=== PATIENT | female | born 1955 | race Caucasian/White ===

== ENCOUNTER 2023-11-08 13:14 | Day surgery (SDC) | payer MEDICARE, BC ==
[~2023-11-08] VITALS: Ht 172.7 cm; Wt 91.3 kg
[~2023-11-08 13:14] MED LIST: ACET500 PO; AMLO5 PO; ASPI81CH PO; CALCIUM-MAGNES1 EAC9 PO; CLIMARA1 EACH TD; ENJUVIA; ESTRADIOL0.5 MG PO; HYDACE5 PO; LEVSOD100 PO; LORA.5 PO; MELO7.5 PO; METO25 PO; NAPR500 PO; ONDA4ODT MM; OXYACE5T PO; Procto-Kit28.35 G1
[2023-11-08] MEDS ORDERED: MELA3 PO (13:37)
--- NOTE | 2023-11-08 13:55 | NUR ---
11/08/23 1355 Diana Smith CALL LIGHT WITHIN REACH. SUSANA IN AT [id number]
[2023-11-08 14:53] VITALS: BP 127/67
[2023-11-09] MEDS ORDERED: ATOR20 PO (16:12)
[2023-11-09] MEDS ORDERED: HYDCHL25 PO (16:13)
[2023-11-09] MEDS ORDERED: HYDCOR2.5C (16:15)
== END 2023-11-08 15:14 | disposition home or self-care (01) ==
LOC: ORSCSDS 13:14
PROVIDERS: Student in an Organized Health Care Education/Training Program
PROC: 08RK3JZ Replacement of Left Lens with Synthetic Substitute, Percutaneous Approach (ICD-10-PCS; principal; 2023-11-08 14:30)
DX: H25.13 Age-related nuclear cataract, bilateral (principal); I10 Essential (primary) hypertension; I48.91 Unspecified atrial fibrillation; I25.10 Atherosclerotic heart disease of native coronary artery without angina pectoris; E78.5 Hyperlipidemia, unspecified; E03.9 Hypothyroidism, unspecified; Z79.899 Other long term (current) drug therapy; Z79.82 Long term (current) use of aspirin
CPT/HCPCS: J2250; J3010; J7040; V2632

== ENCOUNTER 2023-11-15 13:16 | Day surgery (SDC) | payer MEDICARE, BC ==
[~2023-11-15] VITALS: Ht 172.7 cm; Wt 90.1 kg
[~2023-11-15 13:16] MED LIST changes: +ATOR20 PO; +HYDCHL25 PO; +HYDCOR2.5C; +MELA3 PO
--- NOTE | 2023-11-15 13:31 | NUR ---
11/15/23 1331 Claudette Trammell 1 DROP OF PROPARACAINE ADMINISTERED TO THE R EYE AT 1323, PLEDGET PLACED AT 1324 BY [facility].TMG. PT LONNIE WELL
[2023-11-15 14:15] VITALS: BP 131/77
--- NOTE | 2023-11-15 14:31 | NUR ---
11/15/23 1431 Berry Aguiar IV REMOVED INTACT. SITE WNL.
== END 2023-11-15 14:27 | disposition home or self-care (01) ==
LOC: ORSCSDS 13:16
PROVIDERS: Student in an Organized Health Care Education/Training Program
PROC: 08RJ3JZ Replacement of Right Lens with Synthetic Substitute, Percutaneous Approach (ICD-10-PCS; principal; 2023-11-15 14:30)
DX: H25.11 Age-related nuclear cataract, right eye (principal); Z96.1 Presence of intraocular lens; I48.91 Unspecified atrial fibrillation; I25.10 Atherosclerotic heart disease of native coronary artery without angina pectoris; E78.5 Hyperlipidemia, unspecified; I10 Essential (primary) hypertension; E03.9 Hypothyroidism, unspecified; E66.9 Obesity, unspecified; Z68.30 Body mass index [BMI] 30.0-30.9, adult; Z79.82 Long term (current) use of aspirin; Z79.899 Other long term (current) drug therapy; Z87.891 Personal history of nicotine dependence
CPT/HCPCS: J2250; J3010; J7040; V2632

== ENCOUNTER → 2024-08-20 | Outpatient (CLI) | payer MEDICARE, BC ==
[~2024-08-20] MED LIST changes: +METO25ER PO
[2024-08-20 19:57] LABS: Source, Urine Clean Catch
[2024-08-20 20:05] LABS: Appearance, Urine Clear (Clear); Bilirubin, Urine Neg (Neg); Blood, Urine 2+ (Neg); Color, Urine Yellow (P-Yellow); Glucose Qualitative, Urine Neg (Neg); Ketones, Urine Neg (Neg); Leukocyte Esterase, Urine Neg (Neg); Nitrite, Urine Neg (Neg); Protein, Urine Neg (Neg); Urobilinogen, Urine NORM (Normal)
[2024-08-20 20:15] LABS: Bacteria Few /hpf; Red Blood Cells, Urine 0-2 /hpf (0-2); Squamous Epithelial Cells Few /hpf (Few); White Blood Cells, Urine 0-2 /hpf (0-5)
[2024-08-20 20:31] LABS: Protein, Urine Random 9.8 mg/dL (0.0-11.9); Protein/Creat Ratio, Ur Random 0.1
== END | disposition home or self-care (01) ==
LOC: LAB SHORT 19:54 → LAB 19:54
PROVIDERS: Internal Medicine Nephrology
DX: I12.9 Hypertensive chronic kidney disease with stage 1 through stage 4 chronic kidney disease, or unspecified chronic kidney disease (principal); N18.31 Chronic kidney disease, stage 3a; I48.0 Paroxysmal atrial fibrillation
CPT/HCPCS: 81001; 82570; 84156